=== PATIENT | male | born 1965 | race Caucasian/White ===

== ENCOUNTER → 2016-06-07 | Outpatient (CLI) | payer BC | END | disposition home or self-care (01) | LOC: RAD 11:21 | PROVIDERS: ATTEND Family Medicine | DX: M79.641 Pain in right hand (principal) ==

== ENCOUNTER 2016-06-11 13:17 | Emergency (ER) | payer BC ==
--- NOTE | 2016-06-11 14:01 | Emergency Department Record ---
History of Present Illness - General Chief Complaint: Back Pain/Injury Stated Complaint: BACK PAIN Time Seen by Provider: 06/11/16 13:55 Source: Patient Mode of Arrival: Ambulatory Limitations: No limitations - History of Present Illness Initial Comments: 50 yo male presents with back pain. The pain is in the low left lumbar to glutteal area and radiates down the leg to the thigh. No weakness or numbness. NO changes in bowel or bladder function. He has had sciatica in the past but it has been on the right in the past. PCP Dr Haney. Complaint: Back pain Onset/Timin -: Days(s) Similar Symptoms Previously: Yes Place: Home Radiation: Buttocks, Left leg Severity: Moderate Severity scale (1-10): 9 Quality: Sharp Consistency: Constant Improves With: None Worsens With: Movement, Sitting upright, Walking, Other Context: Unknown Associated Symptoms: Denies other symptoms Treatments Prior to Arrival: NSAIDS, Prescription analgesics Treatment Prior to Arrival Comment:: Took his last [place] - Related Data Home Medications Medication Instructions Recorded Confirmed Last Taken Hydrocodone/Acetaminophen 1 tab PO Q4-6HR #30 tab 06/07/16 06/11/16 Unknown [Hydrocodone/Acetaminophen 10mg/300mg] Cephalexin [Cephalexin] 500 mg PO ASDIR 06/11/16 06/11/16 06/11/16 Gabapentin [Gabapentin] 600 mg PO TID 06/11/16 06/11/16 06/11/16 Hydrochlorothiazide 25 mg PO DAILY 06/11/16 06/11/16 06/11/16 [Hydrochlorothiazide] Previous Rx's Medication Instructions Recorded Cyclobenzaprine HCl [Flexeril] 10 mg PO TID #20 tablet 06/11/16 Hydrocodone/Acetaminophen [[place] 1 tab PO Q6H PRN #15 tab 06/11/16 5mg/325mg] Allergies Allergy/AdvReac Type Severity Reaction Status Date / Time propoxyphene napsylate Allergy TACHYCARDIA Verified 06/11/16 13:42 [From Mk] Travel Screening - Travel/Exposure Within Last 30 Days Have you traveled within the last 30 days?: No - Travel/Exposure Within Last Year Have you traveled outside the [place] in the last year?: No - Additonal Travel Details Have you been exposed to anyone with a communicable illness?: No - Travel Symptoms Symptom Screening: None Review of Systems Constitutional: Denies: Chills, Fever, Malaise, Weakness Eyes: Denies: Eye discharge ENT: Denies: Congestion, Throat pain Respiratory: Denies: Cough Cardiovascular: Denies: Chest pain, Palpitations, Syncope Endocrine: Denies: Fatigue Gastrointestinal: Denies: Abdominal pain, Diarrhea, Nausea, Vomiting Genitourinary: Denies: Dysuria, Frequency, Hematuria, Testicular pain Musculoskeletal: Reports: Back pain, Myalgia. Denies: Arthralgia, Neck pain Skin: Denies: Bruising, Change in color, Rash Neurological: Denies: Confusion, Headache, Weakness Psychiatric: Denies: Anxiety Hematological/Lymphatic: Denies: Blood Clots, Easy bleeding, Easy bruising, Swollen glands Past Medical History - SOCIAL HISTORY Smoking Status: Current every day smoker Alcohol Use: None Drug Use: None - RESPIRATORY Hx Respiratory Disorders: Yes Hx Pneumonia: Yes - CARDIOVASCULAR Hx Cardio Disorders: Yes Hx Hypertension: Yes Comment:: high cholesterol - NEURO Hx Neuro Disorders: Yes Hx Headaches: Yes Comment:: menningytis, diabetic neuropathy - GI Hx GI Disorders: Yes Hx Nausea/Vomiting: Yes - Hx Genitourinary Disorders: No - ENDOCRINE Hx Endocrine Disorders: Yes Hx Diabetes: Yes (Type 2) Hx Thyroid Disease: No - MUSCULOSKELETAL Hx Musculoskeletal Disorders: Yes Hx Arthritis: Yes Hx Back Injury: Yes - PSYCH Hx Psych Problems: No - HEMATOLOGY/ONCOLOGY Hx Hematology/Oncology Disorders: No Family Medical History Any Significant Family History?: No Hx Cancer: Mother, Grandparents Hx Diabetes: Father, Mother, Grandparents Hx Heart Disease: Mother Hx Seizures: Brother/Sister Physical Exam - General General Appearance: Alert, Oriented x3, Cooperative, No acute distress Limitations: No limitations - Head Head exam: Normal inspection - Eye Eye exam: Normal appearance, PERRL. negative: Conjunctival injection - ENT ENT exam: Normal exam Ear exam: Normal external inspection Nasal Exam: Normal inspection Mouth exam: Normal external inspection Teeth exam: Normal inspection Throat exam: Normal inspection - Neck Neck exam: Normal inspection, Full ROM. negative: Tenderness - Respiratory Respiratory exam: Normal lung sounds bilaterally. negative: Respiratory distress - Cardiovascular Cardiovascular Exam: Regular rate, Normal rhythm, Normal heart sounds Peripheral Pulses: 2+: Dorsalis Pedis (L) - GI/Abdominal GI/Abdominal exam: Soft - Rectal Rectal exam: Deferred - exam: Deferred - Extremities Extremities exam: Normal inspection, Full ROM, Normal capillary refill. negative: Tenderness - Back Back exam: Reports: Normal inspection, Muscle spasm, Paraspinal tenderness, Tenderness, Vertebral tenderness (tender deep left lower lumbar and glutteal), Other (Pain with straight leg raise). Denies: Full ROM - Neurological Neurological exam: Alert, Normal gait, Oriented X3, Reflexes normal. negative: Motor sensory deficit (EHL intact, plantar and dorsi flexion intact, sensation intact) - Psychiatric Psychiatric exam: Normal affect, Normal mood - Skin Skin exam: Dry, Intact, Normal color, Warm Course Vital Signs 06/11/16 06/11/16 13:36 13:49 Temperature 98.5 F 98.5 F Pulse Rate [ 81 Pulse Ox Probe] Respiratory 12 12 Rate Blood Pressure 136/93 [Left Arm] Pulse Ox 95 95 - Reevaluation(s) Reevaluation #1: EMR reviewed. All prior renal function is normal 06/11/16 14:05 Reevaluation #2: Lumbar XR from June 2015 reviewed. Degenerative changes 06/11/16 14:07 Reevaluation #3: The patient feels some relief with good improvement with ROM He reports he is ready for DC We discussed home care, follow up and reasons to return Off work the tonight and tomorrow. 06/11/16 15:38 Disposition Disposition: Discharge Clinical Impression: Sciatica Qualifiers: Laterality: left Qualified Code(s): M54.32 - Sciatica, left side Disposition: Home, Self-Care Condition: (1) Good Instructions: Sciatica (ED) Additional Instructions: Rest, avoid lifting or prolonged standing or sitting Call your doctor tomorrow for close follow up of your symptoms Return if worse, new symptoms or uncontrolled pain No driving a car or heavy equipment the same day as taking the pain medications. Prescriptions: Cyclobenzaprine HCl [Flexeril] 10 mg PO TID #20 tablet Hydrocodone/Acetaminophen [[place] 5mg/325mg] 1 tab PO Q6H PRN #15 tab PRN Reason: Pain - General Forms: Patient Portal Access Time of Disposition: 15:41
[2016-06-11] MEDS ORDERED: MORPHINE SULFATE 5 MG/ML PFS IVP ONE (14:03)
[2016-06-11] MEDS ORDERED: KETOROLAC 30 MG/ML VIAL IVP ONE (14:04)
[2016-06-11] MEDS ORDERED: METHYLPREDNISOLONE PF 125MG/VIAL IVP SCH (14:15)
== END 2016-06-11 15:58 | disposition home or self-care (01) ==
LOC: ER 13:17
DX: M54.42 Lumbago with sciatica, left side (principal)
CPT/HCPCS: 99284 ×2; 96374; 96375; J1885; J2270; J2930

== ENCOUNTER 2017-09-26 19:23 | Emergency (ER) | payer BC ==
[2017-09-26] MEDS ORDERED: Diph,Pert(Acell),Tet Vac 0.5 ML SYR IM ONE (19:58)
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
== END 2017-09-26 20:13 | disposition home or self-care (01) ==
LOC: ER 19:23
DX: S50.812A Abrasion of left forearm, initial encounter (principal); E11.9 Type 2 diabetes mellitus without complications; I10 Essential (primary) hypertension; F17.210 Nicotine dependence, cigarettes, uncomplicated; Y04.2XXA Assault by strike against or bumped into by another person, initial encounter
CPT/HCPCS: 90715; 96372; 99283

== ENCOUNTER 2017-11-08 17:03 | Emergency (ER) | payer BC ==
[2017-11-08] MEDS ORDERED: ONDANSETRON HCL IV 4 MG/2 ML VIAL IVP ONE (17:21)
[2017-11-08] MEDS ORDERED: HYDROMORPHONE HCL 2 MG/ML VIAL IVP ONE (17:36)
--- NOTE | 2017-11-08 17:42 | Emergency Department Record ---
History of Present Illness - General Chief complaint: Pain Stated complaint: GHULAM/RIB PAIN Time Seen by Provider: 11/08/17 17:30 Source: Patient Mode of Arrival: Wheelchair Limitations: No limitations - History of Present Illness Initial comments: pt has recently almost quit smoking. he has been coughing alot and has occasional shooting pains across his chest. today he has a sudden onset of pain in the right ribs while coughing. Onset/Timin -: Minutes(s) Location: Right History of Same: No Severity scale (1-10): >10 Quality: Sharp Consistency: Constant Improves with: Nothing Worsens with: Nothing Associated Symptoms: Denies other symptoms - Related Data Previous Rx's Medication Instructions Recorded Amoxicillin/Potassium Clav 1 tab PO BID #20 tab 11/08/17 [Augmentin 875-125 Tablet] Hydrocodone/Acetaminophen [[place] 1 each PO Q6HR #7 tablet 11/08/17 5-325 Tablet] Ondansetron [Zofran Odt] 4 mg PO Q8H #10 tab.rapdis 11/08/17 Allergies Allergy/AdvReac Type Severity Reaction Status Date / Time propoxyphene napsylate Allergy TACHYCARDIA Verified 11/08/17 17:04 [From RodolfoFarshad] Travel Screening - Travel/Exposure Within Last 30 Days Have you traveled within the last 30 days?: No Review of Systems Reviewed: No additional complaints except as noted below Constitutional: Reports: As per HPI. Denies: Chills, Fever, Malaise, Night sweats, Weakness, Weight change Eyes: Reports: As per HPI. Denies: Eye discharge, Eye pain, Photophobia, Vision change ENT: Reports: As per HPI. Denies: Congestion, Dental pain, Ear pain, Epistaxis , Hearing loss, Throat pain Respiratory: Reports: As per HPI. Denies: Cough, Dyspnea, Hemoptysis, Stridor, Wheezes Cardiovascular: Reports: As per HPI, Chest pain. Denies: Arrhythmia, Dyspnea on exertion, Edema, Murmurs, Orthopnea, Palpitations, Paroxysmal nocturnal dyspnea, Rheumatic Fever, Syncope Endocrine: Reports: As per HPI. Denies: Fatigue, Heat or cold intolerance, Polydipsia, Polyuria Gastrointestinal: Reports: As per HPI. Denies: Abdominal pain, Constipation, Diarrhea, Hematemesis, Hematochezia, Melena, Nausea, Vomiting Genitourinary: Reports: As per HPI. Denies: Dysuria, Frequency, Hematuria, Incontinence, Retention, Testicular pain, Testicular mass, Urgency Musculoskeletal: Reports: As per HPI. Denies: Arthralgia, Back pain, Gout, Joint swelling, Myalgia, Neck pain Skin: Reports: As per HPI. Denies: Bruising, Change in color, Change in hair/ nails, Lesions, Pruritus, Rash Neurological: Reports: As per HPI. Denies: Abnormal gait, Confusion, Headache, Numbness, Paresthesias, Seizure, Tingling, Tremors, Vertigo, Weakness Psychiatric: Reports: As per HPI. Denies: Anxiety, Auditory hallucinations, Depression, Homicidal thoughts, Suicidal thoughts, Visual hallucinations Hematological/Lymphatic: Reports: As per HPI. Denies: Anemia, Blood Clots, Easy bleeding, Easy bruising, Swollen glands Past Medical History - SOCIAL HISTORY Smoking Status: Former smoker Alcohol Use: None Drug Use: None - RESPIRATORY Hx Respiratory Disorders: Yes Hx Pneumonia: Yes - CARDIOVASCULAR Hx Cardio Disorders: Yes Hx Hypertension: Yes Comment:: high cholesterol - NEURO Hx Neuro Disorders: Yes Hx Headaches: Yes Comment:: menningytis, diabetic neuropathy - GI Hx GI Disorders: Yes Hx Nausea/Vomiting: Yes - Hx Genitourinary Disorders: No - ENDOCRINE Hx Endocrine Disorders: Yes Hx Diabetes: Yes (Type 2) Hx Thyroid Disease: No - MUSCULOSKELETAL Hx Musculoskeletal Disorders: Yes Hx Arthritis: Yes Hx Back Injury: Yes - PSYCH Hx Psych Problems: No - HEMATOLOGY/ONCOLOGY Hx Hematology/Oncology Disorders: No Family Medical History Any Significant Family History?: Yes Hx Cancer: Mother, Grandparents Hx Diabetes: Father, Mother, Grandparents Hx Heart Disease: Mother Hx Seizures: Brother/Sister Physical Exam - General General Appearance: Alert, Oriented x3, Cooperative, Moderate distress - Head Head exam: Normal inspection - Eye Eye exam: Normal appearance, PERRL, EOMI Pupils: Normal accommodation - ENT ENT exam: Normal exam, Mucous membranes moist, Normal external ear exam, Normal orophraynx Ear exam: Normal external inspection. negative: External canal tenderness Nasal Exam: Normal inspection. negative: Discharge, Sinus tenderness Mouth exam: Normal external inspection, Tongue normal Teeth exam: Normal inspection. negative: Dental caries Throat exam: Normal inspection. negative: Tonsillar erythema, Tonsillar exudate - Neck Neck exam: Normal inspection, Full ROM. negative: Tenderness - Respiratory Respiratory exam: Normal lung sounds bilaterally, Chest wall tenderness. negative: Respiratory distress - Cardiovascular Cardiovascular Exam: Normal rhythm, Normal heart sounds, Tachycardia - GI/Abdominal GI/Abdominal exam: Soft, Normal bowel sounds. negative: Tenderness - Rectal Rectal exam: Deferred - exam: Deferred - Extremities Extremities exam: Normal inspection, Full ROM, Normal capillary refill. negative: Tenderness - Back Back exam: Reports: Normal inspection, Full ROM. Denies: Muscle spasm, Rash noted, Tenderness - Neurological Neurological exam: Alert, CN II-XII intact, Normal gait, Oriented X3 - Psychiatric Psychiatric exam: Normal affect, Normal mood - Skin Skin exam: Dry, Intact, Normal color, Warm Course Vital Signs 11/08/17 17:08 Temperature 98.6 F Pulse Rate 107 H Respiratory 24 Rate Blood Pressure 188/144 Pulse Ox 96 Medical Decision Making - Lab Data Result diagrams: 11/08/17 17:10 11/08/17 17:45 Disposition Disposition: Discharge Clinical Impression: Chest wall pain Pneumonia Qualifiers: Pneumonia type: due to unspecified organism Laterality: left Lung location: lower lobe of lung Qualified Code(s): J18.1 - Lobar pneumonia, unspecified organism Nausea & vomiting Qualifiers: Vomiting type: unspecified Vomiting Intractability: non-intractable Qualified Code(s): R11.2 - Nausea with vomiting, unspecified Disposition: Home, Self-Care Condition: (1) Good Instructions: Pneumonia (ED), Acute Nausea and Vomiting (ED), Chest Wall Pain ( ED) Additional Instructions: follow up with family doctor. return sooner if worse. deep inspiration 5 times an hour. Prescriptions: Hydrocodone/Acetaminophen [[place] 5-325 Tablet] 1 each PO Q6HR #7 tablet Amoxicillin/Potassium Clav [Augmentin 875-125 Tablet] 1 tab PO BID #20 tab Ondansetron [Zofran Odt] 4 mg PO Q8H #10 tab.rapdis Forms: Patient Portal Access Quality - Quality Measures Quality Measures: N/A - Blood Pressure Screening Does Patient Have Any of the Following: No Blood Pressure Classification: Hypertensive Reading Systolic Measurement: 188 Diastolic Measurement: 144 Screening for High Blood Pressure: < First Hypertensive BP, F/U Documented > [ G8950] First Hypertensive Follow-up Interventions: Follow-up with rescreen GT 1 day and LT 4 weeks.
[2017-11-08] MEDS ORDERED: KETOROLAC 30 MG/ML VIAL IVP ONE (17:43)
[2017-11-08 17:51] LABS: BASO % 0.4 % (0-6); EOS % 3.7 % (0-6); GRAN % 68.2 % (47-80); HEMATOCRIT 47.8 % (42.0-52.0); HEMOGLOBIN 16.2 gm/dl (14.0-18.0); LYMPH % 21.1 % (16-45); MEAN CELL VOLUME 93.2 fl (81-97); MEAN CORPUSCULAR HEMOGLOBIN 31.6 pg (27-33); MEAN CORPUSCULAR HGB CONC 33.9 g/dl (32-36); MONO % 6.6 % (0-9); PLATELET COUNT 321 K/uL (130-400); RED BLOOD COUNT 5.13 M/uL (4.40-5.70); WHITE BLOOD COUNT W/O DIFF 12.9 K/uL (4.2-12.2)
[2017-11-08 17:58] LABS: BLOOD UREA NITROGEN 15 mg/dL (6-20)
[2017-11-08 17:59] LABS: CREATININE 0.8 mg/dL (0.7-1.2); EST GLOMERULAR FILTRATION RATE > 60 mL/min
[2017-11-08 18:01] LABS: GLUCOSE,RANDOM 405 mg/dL (74-109)
[2017-11-08 18:04] LABS: ALB/GLOB RATIO 1.7 (1.1-1.8); ALKALINE PHOSPHATASE 144 U/L (40-129); ALT/SGPT 26 U/L (<41); AST/SGOT 21 U/L (10.0-50.0)
--- NOTE | 2017-11-10 11:36 | RADIOLOGY REPORT ---
EXAM: RIBS, RIGHT W/PA CHEST HISTORY: COUGH, RIGHT RIB PAIN. TECHNIQUE: Five views. COMPARISON: Chest x-ray, 03/06/2016. FINDINGS: CHEST: Small area of opacity seen in the lower left lung possibly representing atelectasis or infiltrate. Lungs otherwise are clear. Heart not enlarged. No mediastinal mass. RIGHT RIBS: No fracture or acute osseous abnormality. No destructive or erosive change. IMPRESSION: 1. SMALL AREA OF OPACITY IN THE LOWER LEFT LUNG POSSIBLY DUE TO ATELECTASIS AND/ OR INFILTRATE. 2. NO RIGHT RIB FRACTURE SEEN. JOB NUMBER: [id number] [facility]
== END 2017-11-08 18:50 | disposition home or self-care (01) ==
LOC: ER 17:03
DX: J18.1 Lobar pneumonia, unspecified organism (principal); R07.89 Other chest pain; R11.2 Nausea with vomiting, unspecified; E11.9 Type 2 diabetes mellitus without complications; I10 Essential (primary) hypertension; Z87.891 Personal history of nicotine dependence
CPT/HCPCS: 99284 ×2; 96374; 96375; 85025; 80053; 84484; 71101; 93005; 93010; J1885; J2405; J1170

== ENCOUNTER 2017-11-12 10:51 | Inpatient (IN) | payer BC ==
[2017-11-12] MEDS ORDERED: ACETAMINOPHEN 325 MG TAB PO PRN (11:18)
[2017-11-12] MEDS ORDERED: PNEUM 23-VAL ADULT IM ONE (11:40)
[2017-11-12] MEDS: METHYLPREDNISOLONE PF 125MG/VIAL IVP SCH (12:34)
[2017-11-12] MEDS: HYDROCODONE/APAP 7.5/325MG TABLET PO PRN ×2 (12:34→21:07)
--- NOTE | 2017-11-12 12:48 | History & Physical ---
History of Present Illness - Date of Service Date of Service for History & Physical: 11/12/17 - History of Present Illness Admitting Diagnosis: Left lower lobe pneumonia. Failed outpatient treatment. Right rib pain History of Present Illness: Osito Acevedo is a 52 y/o male who presented to [facility], [place] today for worsening of pneumonia, cough, fatigue and right rib pain. He was originally seen in the ED for cough, chest pain radiating across chest but mainly right lower rib cage and though he may have broken ribs from coughing and nausea. In ED his WBC was 12.9, random glucose 406. He reports his blood sugars at home usually run about 180-200. CXR showed LLL atelectasis vs infiltrate, rib x-ray negative for fracture or dislocation. He was otherwise stable at that time and discharged on Augmentin 875mg BID, Zofran ODT and Evergreen 5/325 for rib pain. He reports he has smoked for 40 years and quit 10 days ago. PMH includes DM-2, chronic low back pain with sciatica, HTN, OA and current every day smoker recently quit. While in [facility], [place] he had persistent cough, severe right rib pain, dyspnea with cough, continued fatigue and significant fatigue. Was given Duoneb with no relief. VSS in [facility] [place], SPO2 96% RA. He will be directly admitted to the floor for failed outpatient treatment for pneumonia, pain control, IV fluids and monitoring 11/12/17- sitting in chair, appears painful, persistent cough, overall looks unwell. Lungs diminished, does have some dyspnea related to cough. No recent sick contacts. Travel Screening - Travel/Exposure Within Last 30 Days Have you traveled within the last 30 days?: No - Travel/Exposure Within Last Year Have you traveled outside the [place] in the last year?: No - Additonal Travel Details Have you been exposed to anyone with a communicable illness?: No - Travel Symptoms Symptom Screening: None Past Medical History - SOCIAL HISTORY Smoking Status: Former smoker Alcohol Use: None Drug Use: None - RESPIRATORY Hx Respiratory Disorders: Yes Hx Pneumonia: Yes - CARDIOVASCULAR Hx Cardio Disorders: Yes Hx Hypertension: Yes Comment:: high cholesterol - NEURO Hx Neuro Disorders: Yes Hx Headaches: Yes Comment:: meningitis, diabetic neuropathy - GI Hx GI Disorders: Yes Hx Abdominal Pain: Yes (rib pain right) Hx Nausea/Vomiting: Yes - Hx Genitourinary Disorders: No - ENDOCRINE Hx Endocrine Disorders: Yes Hx Diabetes: Yes (Type 2) Hx Thyroid Disease: No - MUSCULOSKELETAL Hx Musculoskeletal Disorders: Yes Hx Arthritis: Yes Hx Back Injury: Yes - PSYCH Hx Psych Problems: No - HEMATOLOGY/ONCOLOGY Hx Hematology/Oncology Disorders: No Family Medical History Any Significant Family History?: Yes Hx Cancer: Mother, Grandparents Hx Dementia: Father Hx Diabetes: Father, Mother, Grandparents Hx Heart Disease: Mother Hx Seizures: Brother/Sister H&P Meds/Allergies - Allergies Allergies: Allergies Allergy/AdvReac Type Severity Reaction Status Date / Time propoxyphene napsylate Allergy TACHYCARDIA Verified 11/08/17 17:04 [From [email or web address]-N] - Home Medications Home Medications Medication Instructions Recorded Confirmed Last Taken Ondansetron [Zofran Odt] 4 mg PO Q8H PRN 11/12/17 11/12/17 Unknown Previous Rx's Medication Instructions Recorded Amoxicillin/Potassium Clav 1 tab PO BID #20 tab 11/08/17 [Augmentin 875-125 Tablet] Hydrocodone/Acetaminophen [Evergreen 1 each PO Q6HR #7 tablet 11/08/17 5-325 Tablet] - Active Medications Active Medications: Current Medications Acetaminophen (Tylenol 325mg) 650 mg PO Q6H PRN PRN Reason: PAIN - MILD(1-4)/FEVER Hydrocodone Bitart/Acetaminophen (Evergreen 7.5mg/325mg) 1 each PO Q4H PRN PRN Reason: PAIN - MOD TO SEVERE (5-10) Last Admin: 11/12/17 12:34 Dose: 1 each Albuterol Sulfate () 2.5 mg INH Q4H PRN PRN Reason: SHORTNESS OF BREATH Last Admin: 11/12/17 11:43 Dose: 2.5 mg Albuterol/Ipratropium (Duoneb) 3 ml INH RESP.Q4H.WA [facility] Enoxaparin Sodium (Lovenox) 40 mg SC DAILY [facility] Gabapentin (Neurontin) 600 mg PO Q8HR [facility] Glipizide (Glucotrol Xl) 5 mg PO DAILY [facility] Hydrochlorothiazide (Hctz 25mg) 25 mg PO DAILY [facility] Sodium Chloride () 1,000 mls @ 125 mls/hr IV .Q8H PRN PRN Reason: LARGE VOLUME IV Azithromycin 500 mg/ Sodium (Chloride) 250 mls @ 250 mls/hr IVPB Q24H [facility] Stop: 11/17/17 13:01 CEFTRIAXONE 1GM/50ML BAG (Ceftriaxone 1 Gm-D5w Bag) 1 gm in 50 mls @ 100 mls/ hr IVPB Q12HR [facility] Insulin Detemir (Levemir Flextouch) 30 unit SQ QHS [facility] Insulin Human Regular (Humulin R) 1 unit SQ TIDAC [facility]; Protocol Meloxicam (Mobic) 15 mg PO DAILY [facility] Metformin HCl (Glucophage Xr) 1,000 mg PO BID [facility] Methylprednisolone Sodium Succinate (Solu-Medrol) 125 mg IVP DAILY [facility] Last Admin: 11/12/17 12:34 Dose: 125 mg Physical Exam - Vital Signs Vital Signs: Vital Signs - Last 24 Hrs Temp Pulse Resp BP Pulse Ox 11/12/17 11:23 98.1 F 93 H 18 139/87 95 - General General Appearance: Alert, Oriented x3, Cooperative, Moderate distress Limitations: No limitations - Head Head exam: Atraumatic, Normocephalic - Eye Eye exam: Normal appearance, PERRL - ENT ENT exam: Normal exam - Neck Neck exam: Normal inspection, Full ROM - Respiratory Respiratory exam: Chest wall tenderness (right anterior lower ribs, no obvious deformity or bruising), Decreased breath sounds (throughout), Other - Cardiovascular Cardiovascular Exam: Regular rate, Normal rhythm, Normal heart sounds - GI/Abdominal GI/Abdominal exam: Soft. negative: Tenderness - Extremities Extremities exam: Normal inspection. negative: Pedal edema - Back Back exam: Reports: Normal inspection - Neurological Neurological exam: Alert, CN II-XII intact, Oriented X3 - Psychiatric Psychiatric exam: Normal affect, Normal mood - Skin Skin exam: Dry, Warm Results - Labs Result Diagrams: 11/12/17 11:18 11/12/17 11:18 VTE H&P Assessment - Risk for VTE Risk for VTE: Yes Risk Level: Moderate Risk Assessment Date: 11/12/17 Risk Assessment Time: 12:53 VTE Orders Placed or Will Be Placed: Yes Plan - Inpatient Certification Inpatient Certification: Admit to inpatient care: Based on my medical assessment, after consideration of patient's risk factors (age, co-morbidities and patient presenting symptoms and acuity), I expect that this patient will remain in the hospital greater than or equal to two midnights and that the services needed warrant inpatient care because: Patient Risk Factors: [failed outpatient treatment for pneumonia] Estimated length of stay: [48-72 hours] The patient may reasonably be expected to be discharged or transferred to a hospital within 96 hours after admission to [facility]. Services needed: [IV antibiotics, pain control] Post hospital care (if known): [] I certify that my determination is in accordance with my understanding of Medicare requirements for reasonable and necessary inpatient services. 11/12/17 12:53 - Detailed Diagnosis and Plan (1) LLL pneumonia Current Visit: Yes Status: Acute Qualifiers: Pneumonia type: due to unspecified organism Qualified Code(s): J18.1 - Lobar pneumonia, unspecified organism Base Code: J18.1 - LOBAR PNEUMONIA, UNSPECIFIED ORGANISM Comment: 11/12/17: Direct admit from [facility] [place] for failed outpatient treatment with Augmentin - Rocephin 1gm Q 12 hours and Azithromycin 500mg IVPB Q 24 hours - IV Solumedrol 125mg then 60mg QD - Albuterol PRN, Duoneb QID - NS @ 125ml/hr - Labs and EKG (2) Chest wall pain Current Visit: No Status: Acute Base Code: R07.89 - OTHER CHEST PAIN Comment: 11/12/17: X-ray in ED 11/08 negative for rib fracture or dislocation. -inadequate pain control using Evergreen 5/325, will increase to Evergreen 7.5/325mg Q 4hr PRN (3) Diabetes Current Visit: Yes Status: Chronic Qualifiers: Diabetes mellitus type: type 2 Diabetes mellitus assistant terminal manager insulin use: with long-term use Diabetes mellitus complication status: without complication Qualified Code(s): E11.9 - Type 2 diabetes mellitus without complications; Z79.4 - keno terminal operator (current) use of insulin Base Code: E11.9 - TYPE 2 DIABETES MELLITUS WITHOUT COMPLICATIONS Comment: 11/12- random glucose in ED 11/08 406, patient reports blood sugars usually run 180- 200 at home - accu checks with sliding scale - ADA diet - Levemir 30 units daily - anticipate transient increase due to steroid use and acute infection (4) Sciatica Current Visit: Yes Status: Chronic Qualifiers: Laterality: left Qualified Code(s): M54.32 - Sciatica, left side Base Code: M54.30 - SCIATICA, UNSPECIFIED SIDE Comment: 11/12/17: continue Neurontin 600mg TID (5) DVT prophylaxis Current Visit: Yes Status: Acute Base Code: [id number] - Comment: 11/12/17- Lovenox 40mg SQ QD (6) Full code status Current Visit: Yes Status: Acute Base Code: Z78.9 - OTHER SPECIFIED HEALTH STATUS Comment: 11/12/17- full code during this hospitalization
[2017-11-12] MEDS: CEFTRIAXONE 1GM/50ML BAG 1 GM/50 ML BAG IVPB SCH ×2 (12:50→21:07)
[2017-11-12 13:12] LABS: BASO % 0.4 % (0-6); EOS % 3.2 % (0-6); GRAN % 67.2 % (47-80); HEMATOCRIT 42.7 % (42.0-52.0); HEMOGLOBIN 14.3 gm/dl (14.0-18.0); LYMPH % 22.3 % (16-45); MEAN CELL VOLUME 94.3 fl (81-97); MEAN CORPUSCULAR HEMOGLOBIN 31.6 pg (27-33); MEAN CORPUSCULAR HGB CONC 33.5 g/dl (32-36); MEAN PLATELET VOLUME 10.3 fl (7.4-10.4); MONO % 6.9 % (0-9); PLATELET COUNT 244 K/uL (130-400); RED BLOOD COUNT 4.53 M/uL (4.40-5.70); RED CELL DISTRIBUTION WIDTH 12.7 % (11.5-14.5); WHITE BLOOD COUNT W/O DIFF 10.4 K/uL (4.2-12.2)
[2017-11-12] MEDS: AZITHROMYCIN 500 MG in 0.9 % SODIUM CHLORIDE 250ML 250 ML IVPB SCH (13:33)
[2017-11-12] MEDS ORDERED: ONDANSETRON 4 MG ODT TABLET SL PRN (13:43)
--- NOTE | 2017-11-12 13:47 | Physician Addendum ---
Addendum (Physician) EKG with RBBB and unchanged since previously done 11/08/17. CBC unremarkable 11/12/17 13:44 Na 134 Troponin <0.010 MB <0.1 Blood culture pending CXR final reading pending 11/12/17 14:53
[2017-11-12] MEDS: IPRATROPIUM/ALBUTEROL (0.5MG/3MG) NEB INH SCH ×3 (13:55→21:14)
[2017-11-12 14:28] LABS: ALB/GLOB RATIO 1.4 (1.1-1.8); ALBUMIN 3.8 g/dL (4.0-5.0); ALKALINE PHOSPHATASE 96 U/L (40-129); ALT/SGPT 26 U/L (<41); AST/SGOT 15 U/L (10.0-50.0); BLOOD UREA NITROGEN 13 mg/dL (6-20); CKMB < 1.0 ng/mL (<6.73); CREATININE 0.7 mg/dL (0.7-1.2); EST GLOMERULAR FILTRATION RATE > 60 mL/min; GLUCOSE,RANDOM 391 mg/dL (74-109); TOTAL PROTEIN 6.6 g/dL (6.6-8.7)
[2017-11-12] MEDS: HUMULIN R 100 UNIT/ML VIAL SQ SCH ×2 (15:07→17:40)
[2017-11-12] MEDS: GABAPENTIN 300 MG CAPSULE PO SCH ×2 (15:11→21:07)
[2017-11-12] MEDS ORDERED: ALBUTEROL SULFATE (0.083%) 2.5 MG/3 ML NEB INH PRN (17:00)
[2017-11-12] MEDS: PROMETHAZINE W/CODEINE 10ML UD PO PRN (20:10)
[2017-11-12] MEDS: METFORMIN ER HCL 500 MG TAB.ER.24H PO SCH (21:07)
[2017-11-12] MEDS: LEVEMIR FLEXTOUCH 100 UNIT/ML INSULIN PEN SQ SCH (21:08)
[2017-11-13] MEDS: PROMETHAZINE W/CODEINE 10ML UD PO PRN ×4 (02:20→21:50)
[2017-11-13] MEDS: IPRATROPIUM/ALBUTEROL (0.5MG/3MG) NEB INH SCH ×5 (05:55→21:28)
[2017-11-13] MEDS: GABAPENTIN 300 MG CAPSULE PO SCH ×3 (06:14→21:40)
--- NOTE | 2017-11-13 07:47 | RADIOLOGY REPORT ---
EXAM: CHEST, TWO VIEWS HISTORY: LEFT LOWER LOBE PNEUMONIA RECHECK. TECHNIQUE: PA and lateral views of the chest were obtained. Comparison: PA chest 11/08/17. Report of the prior study is not as yet available within PACS. FINDINGS: There is persistent infiltrate in the left base. In addition, there is fullness in the AP window of the mediastinum where some adenopathy cannot be excluded. Some fullness in the left suprahilar region previously is actually less pronounced currently although still some residual prominence present. Continued follow-up suggested and if there is persistent fullness in the AP window of the mediastinum in particular, follow-up chest CT would be recommended to exclude mass/adenopathy in this location. The heart size is stable, within normal limits. The lungs appear somewhat hyperinflated suggesting underlying COPD. IMPRESSION: 1. PERSISTENT ATELECTASIS/INFILTRATE IN THE LEFT BASE, PROBABLY PREDOMINANTLY IN THE LINGULA. 2. PERSISTENT FULLNESS IN THE AP WINDOW WHERE SOME ADENOPATHY/MASS CANNOT BE EXCLUDED. FULLNESS IN THE LEFT SUPRAHILAR REGION SEEN ON THE PRIOR STUDY IS SLIGHTLY LESS APPARENT TODAY. 3. CONTINUED FOLLOW-UP DESCRIBED ABOVE SUGGESTED. JOB NUMBER: [id number] [facility]
[2017-11-13] MEDS: HUMULIN R 100 UNIT/ML VIAL SQ SCH ×3 (08:01→17:58)
[2017-11-13 08:42] LABS: BASO % 0.1 % (0-6); EOS % 0.2 % (0-6); GRAN % 79.4 % (47-80); HEMATOCRIT 38.3 % (42.0-52.0); HEMOGLOBIN 13.1 gm/dl (14.0-18.0); LYMPH % 13.3 % (16-45); MEAN CELL VOLUME 92.7 fl (81-97); MEAN CORPUSCULAR HEMOGLOBIN 31.7 pg (27-33); MEAN CORPUSCULAR HGB CONC 34.2 g/dl (32-36); MEAN PLATELET VOLUME 9.3 fl (7.4-10.4); PLATELET COUNT 279 K/uL (130-400); RED BLOOD COUNT 4.13 M/uL (4.40-5.70); RED CELL DISTRIBUTION WIDTH 12.5 % (11.5-14.5)
[2017-11-13 09:17] LABS: BLOOD UREA NITROGEN 18 mg/dL (6-20); CREATININE 0.7 mg/dL (0.7-1.2); EST GLOMERULAR FILTRATION RATE > 60 mL/min; GLUCOSE,RANDOM 336 mg/dL (74-109)
[2017-11-13] MEDS: CEFTRIAXONE 1GM/50ML BAG 1 GM/50 ML BAG IVPB SCH ×2 (09:28→21:41)
[2017-11-13] MEDS: METFORMIN ER HCL 500 MG TAB.ER.24H PO SCH ×2 (09:28→21:41)
[2017-11-13] MEDS: ENOXAPARIN 40 MG/0.4 ML SYR SC SCH (09:29)
[2017-11-13] MEDS: MELOXICAM 7.5 MG TABLET PO SCH (09:29)
[2017-11-13] MEDS: METHYLPREDNISOLONE PF 125MG/VIAL IVP SCH (09:29)
[2017-11-13] MEDS: HYDROCHLOROTHIAZIDE 25 MG TABLET PO SCH (09:30)
[2017-11-13] MEDS: GLIPIZIDE XL 5 MG TABLET PO SCH (09:30)
[2017-11-13] MEDS: HYDROCODONE/APAP 7.5/325MG TABLET PO PRN ×2 (09:48→21:49)
[2017-11-13] MEDS: AZITHROMYCIN 500 MG in 0.9 % SODIUM CHLORIDE 250ML 250 ML IVPB SCH (12:52)
[2017-11-13] MEDS: 0.9 % SODIUM CHLORIDE 1000ML 1,000 ML IV PRN (16:28)
[2017-11-13] MEDS: LEVEMIR FLEXTOUCH 100 UNIT/ML INSULIN PEN SQ SCH (21:42)
[2017-11-14] MEDS: 0.9 % SODIUM CHLORIDE 1000ML 1,000 ML IV PRN ×3 (00:40→20:51)
[2017-11-14] MEDS: GABAPENTIN 300 MG CAPSULE PO SCH ×4 (06:02→21:23)
[2017-11-14] MEDS: PROMETHAZINE W/CODEINE 10ML UD PO PRN ×2 (06:04→20:12)
[2017-11-14] MEDS: IPRATROPIUM/ALBUTEROL (0.5MG/3MG) NEB INH SCH ×5 (06:10→21:45)
[2017-11-14] MEDS: HUMULIN R 100 UNIT/ML VIAL SQ SCH ×3 (09:16→17:49)
[2017-11-14] MEDS: METFORMIN ER HCL 500 MG TAB.ER.24H PO SCH ×2 (09:20→21:23)
[2017-11-14] MEDS: HYDROCHLOROTHIAZIDE 25 MG TABLET PO SCH (09:21)
[2017-11-14] MEDS: GLIPIZIDE XL 5 MG TABLET PO SCH (09:21)
[2017-11-14] MEDS: MELOXICAM 7.5 MG TABLET PO SCH (09:21)
[2017-11-14] MEDS: ENOXAPARIN 40 MG/0.4 ML SYR SC SCH (09:22)
[2017-11-14] MEDS: METHYLPREDNISOLONE PF 125MG/VIAL IVP SCH (09:22)
[2017-11-14] MEDS: CEFTRIAXONE 1GM/50ML BAG 1 GM/50 ML BAG IVPB SCH ×2 (09:22→21:23)
[2017-11-14] MEDS: HYDROCODONE/APAP 7.5/325MG TABLET PO PRN (09:32)
[2017-11-14] MEDS: GUAIFENESIN 600 MG TABCR PO SCH ×2 (09:59→21:23)
[2017-11-14] MEDS: AZITHROMYCIN 500 MG in 0.9 % SODIUM CHLORIDE 250ML 250 ML IVPB SCH (13:07)
[2017-11-14] MEDS: LEVEMIR FLEXTOUCH 100 UNIT/ML INSULIN PEN SQ SCH (21:29)
[2017-11-15] MEDS: PROMETHAZINE W/CODEINE 10ML UD PO PRN ×2 (05:36→09:34)
[2017-11-15] MEDS: 0.9 % SODIUM CHLORIDE 1000ML 1,000 ML IV PRN (05:37)
[2017-11-15] MEDS: IPRATROPIUM/ALBUTEROL (0.5MG/3MG) NEB INH SCH ×2 (05:47→10:00)
[2017-11-15] MEDS: GABAPENTIN 300 MG CAPSULE PO SCH (06:31)
--- NOTE | 2017-11-15 08:08 | Discharge Note ---
VTE H&P Assessment - Risk for VTE Risk for VTE: Yes Risk Level: Moderate Risk Assessment Date: 11/12/17 Risk Assessment Time: 12:53 VTE Orders Placed or Will Be Placed: Yes Discharge Medications - Discharge Medications Prescriptions: Azithromycin [Zithromax] 500 mg PO DAILY #10 tab Cephalexin [Keflex] 500 mg PO QID #40 cap Guaifenesin [Mucinex] 600 mg PO BID #30 tabcr Prednisone [Prednisone 20Mg] 20 mg PO BID #10 tab Promethazine HCl/Codeine [Phenergan W/Codeine] 5 ml PO Q4H PRN #120 udbtl PRN Reason: Cough Home Medications: Ambulatory Orders Hydrocodone/Acetaminophen [Wolford 5-325 Tablet] 1 each PO Q6HR #7 tablet [Last Taken 11/11/17] Acetaminophen [Tylenol 325Mg] 650 mg PO Q6H PRN tablet 11/15/17 [Last Taken Unknown] Azithromycin [Zithromax] 500 mg PO DAILY #10 tab 11/15/17 [Last Taken Unknown] Cephalexin [Keflex] 500 mg PO QID #40 cap 11/15/17 [Last Taken Unknown] Gabapentin [Neurontin] 600 mg PO Q8HR capsule 11/15/17 [Last Taken Unknown] Guaifenesin [Mucinex] 600 mg PO BID #30 tabcr 11/15/17 [Last Taken Unknown] Hydrochlorothiazide [Hctz] 25 mg PO DAILY tablet 11/15/17 [Last Taken Unknown] Hydrocodone/APAP 7.5/325Mg [Wolford 7.5MG/325Mg] 1 each PO Q4H PRN tab 11/15/17 [ Last Taken Unknown] Insulin Detemir [Levemir Flextouch] 30 unit SQ QHS syringe 11/15/17 [Last Taken Unknown] Meloxicam [Mobic] 15 mg PO DAILY tablet 11/15/17 [Last Taken Unknown] Metformin ER HCl [Glucophage Xr] 1,000 mg PO BID tab.er.24h 11/15/17 [Last Taken Unknown] Prednisone [Prednisone 20Mg] 20 mg PO BID #10 tab 11/15/17 [Last Taken Unknown] Promethazine HCl/Codeine [Phenergan W/Codeine] 5 ml PO Q4H PRN #120 udbtl [Last Taken Unknown] Discharge Note - Date Date of Discharge Note: 11/15/17 Disposition: Home, Self-Care Condition: (1) Good Additional Instructions: Follow up as scheduled with Dr. Hackett on 11/21/17 at 7:40AM. patient will need a follow up chest xray in 2-3 weeks use pro inhaler 2 puffs every 4 hours as needed use prednisone 20 mg twice aday for 5 days off work till nov 18 and can return to work on sunday night on nov 19 stay off cigs Referrals: SAAD HACKETT [Primary Care Provider] -
[2017-11-15] MEDS ORDERED: HUMULIN R 100 UNIT/ML VIAL SC ONE (09:39)
[2017-11-15] MEDS ORDERED: AZITHROMYCIN 500 MG TABLET PO SCH (10:00)
[2017-11-15] MEDS ORDERED: PREDNISONE 20 MG TAB PO SCH (10:00)
[2017-11-15] MEDS: HUMULIN R 100 UNIT/ML VIAL SQ SCH (13:30)
--- NOTE | 2017-11-16 09:40 | Discharge Summary ---
DISCHARGE DIAGNOSES: 1. Left lower lobe pneumonia. 2. Diabetes mellitus type 2. 3. COPD exacerbation. 4. Recently stopped tobacco use 3 weeks ago. 5. Chronic low back pain. ATTENDING PHYSICIAN: Yonny Drummond DO REASON FOR HOSPITALIZATION: This 52-year-old male failed outpatient therapy for left lower lobe pneumonia. He also has been having some rib pains. He presented to [facility] with worsening symptoms of pneumonia, cough, fatigue. Seen by Zabrina and admitted to the hospital for IV therapy, IV antibiotics. He was being treated outpatient with Augmentin 875 b.i.d. He has smoked 40 years. He quit about 10 days prior to admission to the hospital. He also has hypertension and osteoarthritis. SIGNIFICANT FINDINGS: Chest x-ray showing an infiltrate atelectasis left lower lobe. Radiologist recommends followup x-rays for complete clearing of the infiltrate atelectasis of the left lower lobe. Also, there is some adenopathy present that was seen on previous x-rays. However, this needs to be followed too. EKG showing normal sinus rhythm with right bundle-branch block. Troponin x2 is negative. Initial WBC 10,400. It went up with the Solu-Medrol to 16,000. Hemoglobin was 14.3. Last electrolytes, sodium 136, potassium 4.1, chloride 97, BUN 18, creatinine 0.7. His sugars have fluctuated but not because of the Solu-Medrol. On the day of discharge, his morning sugar was around 63, slightly low, which improved with eating breakfast and having some orange juice. THERAPY PROVIDED: The patient was given IV Rocephin and azithromycin, Solu-Medrol IV once a day 125, switched over to oral prednisone on discharge. Breathing treatments and nebulization of DuoNeb. However, he stated that he did not really feel like the treatments were necessary but he was doing about every 4 hours while awake. At home he uses ProAir inhaler, albuterol 2 puffs every 4 hours as needed. CONDITION ON DISCHARGE: Improved but still coughing. DISCHARGE INSTRUCTIONS: Follow up with Dr. Quinn on 11/21/2017 at 7:40 a.m. He will need a followup chest x-ray in 2-3 weeks. Off work until 11/18/2017 returning on Sunday night. He works third shift on 11/19/2017. Prednisone 20 mg b.i.d. for 5 days, Keflex 500 mg 4 times a day for 10 days, azithromycin 500 a day for 10 days. Stay off the cigarettes. He is to check his sugar twice a day. It might be up a little bit with the prednisone. MTDD
== END 2017-11-15 09:40 | disposition home or self-care (01) | DRG 195 ==
LOC: MEDSURG 10:51
PROVIDERS: ADMIT Internal Medicine; ATTEND Emergency Medicine
DX: J18.1 Lobar pneumonia, unspecified organism (principal); R07.81 Pleurodynia; R07.89 Other chest pain; I10 Essential (primary) hypertension; E11.9 Type 2 diabetes mellitus without complications; M54.32 Sciatica, left side; M19.90 Unspecified osteoarthritis, unspecified site; G62.9 Polyneuropathy, unspecified; Z86.61 Personal history of infections of the central nervous system; Z87.891 Personal history of nicotine dependence
CPT/HCPCS: 36416; 71046; 80048; 80053; 82553; 82948; 84484; 85025; 87040; 90732; 93005; 94640; 99223; 99232; 99239; J0456; J0696; J1650; J2930; J7050; J7613